=== PATIENT | female | born 1970 | race Hispanic/Latino ===

== ENCOUNTER 2025-01-12 12:54 | Emergency (ER) | payer SELFPAY ==
--- OUTSIDE RECORDS SUMMARY | 2025-01-12 12:57 | XMS REPORT | Clinical Summary ---
Author Name Unknown Organization [facility] Address [address] [place] [address] Care Team Providers Care Circulation Analyst Name Role Phone Shae Simmons MD Unavailable [phone] Suzanne Wheat MD Primary Care Provider [phone] Allergies No known active allergies Medications * This document contains information received from the source organization and may not represent a complete record from that organization. blood-glucose meter kitIndications:T ype 2 diabetes mellitus with hyperglycemia Test 4 times daily Dx code E11.65, Z79.4. Dispense brand preferred by insurance 1 each 04/16/20 22 Active lancets miscIndications: Type 2 diabetes mellitus with hyperglycemia Check blood sugar 4 times daily. Dx code E11.65, Z79.4. Dispense brand preferred by insurance that matches lancing device 400 each 3 04/16/20 22 Active insulin lispro (HumaLOG KwikPen Insulin) 100 unit/mL insulin penIndications:T ype 2 diabetes mellitus with hyperglycemia Inject 5 Units under the skin 3 (three) times a day before meals. 15 mL 5 04/17/20 22 Active Additional Information Patient taking differently: 8.5 Unitssubcutaneous 3 times daily before meals, Reason: Other, Reported on 08/17/2022 metFORMIN (GLUCOPHAGE) 500 mg tabletIndication s:Type 2 diabetes mellitus with hyperglycemia Take 2 tablets (1,000 mg) by mouth 2 (two) times a day with meals. 360 tablet 3 04/17/20 22 Active flash glucose sensor (FreeStyle Joe 2 Sensor) kitIndications:T ype 2 diabetes mellitus with hyperglycemia 1 Units by miscellaneous route every 14 (fourteen) days. 1 kit 6 05/13/19 Active tirzepatide (Mounjaro) 2.5 mg/0.5 mL pnijIndications: Type 2 diabetes mellitus with hyperglycemia Inject 2.5 mg under the skin every 7 days. 2 mL 3 08/18/19 23 Active insulin syringe-needle U-100 (BD Insulin Syringe) 0.5 mL 29 gauge x 1/2" syrgIndications: Type 2 diabetes mellitus with hyperglycemia Use with each insulin administration 200 each 3 08/18/19 Active atorvastatin (Lipitor) 40 mg tabletIndication s:Type 2 diabetes mellitus with hyperglycemia Take 1 tablet (40 mg) by mouth at bedtime. 90 tablet 3 08/18/19 Active insulin glargine-yfgn (Semglee,insulin glargine-yfgn,) 100 unit/mL solnIndications: Type 2 diabetes mellitus with hyperglycemia Inject 10 Units under the skin twice daily. 10 mL 1 10/22/19 Active blood sugar diagnostic (FreeStyle Lite Strips) strpIndications: Type 2 diabetes mellitus with hyperglycemia TEST 4 TIMES DAILY/ DX CODE E11.65, Z79.4. 400 strip 02/02/20 Active Active Problems Problem Noted Date Diagnosed Date Pleuritic pain 05/19/2022 Diverticulitis 04/15/2022 Type 2 diabetes mellitus 04/15/2022 Overview (04/15/2022): A1C 11%; 1000 mg daily metformin; A1C 9% last check Morbid (severe) obesity due to excess calories 1 06/16/2021 Mass of colon 04/09/2022 Hypothyroidism 04/19/2011 Overview (04/15/2022): on no replacement; on blood test Immunizations Immunization Administration Dates Next Due Influenza, injectable, quadrivalent, preservativ e free 01/17/2021 Surgical History Surgery Date Site/Laterality Comments SECTION, CLASSIC 01/17/2006 - 02/16/2006 GALLBLADDER SURGERY 03/20/2022 COLONOSCOPY 05/19/2022 CO COLONOSCOPY FLX DX W/COLLJ SPEC WHEN PFRMD 05/19/2022 N/A Procedure: DIAGNOSTIC FLEXIBLE COLONOSCOPY PROXIMAL TO SPLENIC FLEXURE; Surgeon: Curtis Salamanca MD; Location: MAIN ENDOSCOPY; Service: GASTROENTEROLOGY Medical History Medical History Date Comments Functional visual loss 0, uses glasses. Tooth disorder 04/19/2019 wisdom teeth Diverticulitis 10/29/2013 Gallstone cholecystectomy 03/20/2022 Type 2 diabetes mellitus 10/28/2021 A1C 11% ; 1000 mg daily metformin; A1C 9% last check Abnormal electrocardiogram (ECG) (EKG) Hypothyroidism 2011 on no replacemen t; on blood test Urinary tract infection 04/01/2022 treated and no symptoms Social History Tobacco Use Types Packs/Day Years Used Date Smoking Tobacco: Never Smokeless Tobacco: Never Tobacco Cessation:Counseling Given: Not Answered Alcohol Use Standard Drinks/Week Comments Not Currently 3 (1 standard drink = 0.6 oz pur e alcohol) on special occasions Comments No Sex and Gender Information Value Date Recorded Sex Assigned at Not on file Legal Sex Female 1:06 PM [employer] Gender Identity Not on file Sexual Orientation Not on file Obstetrics History Plan of Treatment Health Maintenance Due Date Last Done Comments Pneumococcal Vaccine: 50+ Ye ars (1 of 2 - PCV) 1989 COVID-19 Vaccine (3 - season) 2024, 06/14/2020 Influenza Vaccine (#1) 2024 01/17/2021 Insurance [employer] [place] [id number] [employer] [place] [place] [id number] Advance Directives * Full Code (Latest Code Status on File) Date Activated Date Inactivated Comments 05/19/2022 11:57 PM 05/20/2022 3:33 PM Care Teams Circulation Analyst Relationship Specialty Start Date End Date Shae Simmons MD [address] [place] [address] PCP - External Primary Care Provider Family Practice 04/03/22 Suzanne Wheat MD [facility] [place] [address] [email or web address] PCP - General Internal Medicine 04/08/22
--- NOTE | 2025-01-12 13:41 | RAD REPORT ---
Exam:Wrist Left 3 View HISTORY: Left wrist pain FINDINGS: Mildly displaced distal radial fracture appears to extend intra-articularly. No dislocation
--- NOTE | 2025-01-12 14:05 | EDPHYS ---
Physician Documentation [facility] Name: Bee Oliver Age: 54 yrs Sex: Female : 1970 Arrival Date: 01/12/2025 Time: 12:54 Bed 24 Private MD: JULES Physician Jay Elias HPI: 01/12 15:59 This 54 yrs old Female presents to ER via Ambulatory with complaints of Wrist sb4 Injury. 15:59 Patient states that she was moving some empty water jugs when she tripped over a shoe sb4 and fell forward, bracing herself with her left arm. States that she heard a crack and immediately had pain in her wrist that radiates up to her hand since. Is able to move her fingers but cannot move her wrist. No prior injuries, no major medical history. Historical: - Allergies: 13:06 No Known Allergies; db - PMHx: 13:06 None; db - PSHx: 13:06 Cholecystectomy; section; db - Immunization history:: Adult Immunizations unknown. - Infectious Disease History:: Denies. - Social history:: Smoking status: Patient denies any tobacco usage or history of. ROS: 15:59 Constitutional: Negative for fever, chills, and weight loss, sb4 15:59 MS/extremity: Positive for injury or acute deformity, decreased range of motion, pain, swelling, tenderness, of the left wrist, 15:59 All other systems are negative, Exam: 15:59 Hand exam: Circulation is intact in all extremities. Pulses: are normal with no sb4 appreciated deficits, sensation intact. Joints: the left wrist displays limited range of motion, pain at rest, painful range of motion, swelling, tenderness, 15:59 Constitutional: This is a well developed, well nourished patient who is awake, alert, and in no acute distress. Head/Face: Normocephalic, atraumatic. Eyes: Extra-ocular motions intact. Periorbital areas with no swelling, redness, or edema. ENT: Mucous membranes moist. Respiratory: No increased work of breathing, no retractions or nasal flaring. Skin: Warm, dry with normal turgor. Normal color with no rashes, no lesions, and no evidence of cellulitis. Vital Signs: 13:05 BP 131 / 72; Pulse 64; Resp 16; Temp 98; Pulse Ox 96% ; Weight 74.84 kg; Height 5 ft. 1 db in. ; 13:05 Body Mass Index 31.18 (74.84 kg, 154.94 cm) db MDM: 13:05 Medical Screening Exam initiated sb4 15:31 External Records Reviewed: [facility] aware checked, last scheduled prescription was for sb4 phentermine filled in March 2024. 15:46 Independent interpretation of the following test(s) in the Emergency Department X-Ray: sb4 My interpretation is Left wrist images -acute nondisplaced distal radius fracture. 16:00 Differential diagnosis: dislocation, closed fracture, contusion, abrasion, tendonitis. sb4 Data reviewed: vital signs, nurses notes, radiologic studies, plain films, and as a result, I will discharge patient. Counseling: I had a detailed discussion with the patient and/or guardian regarding the historical points, exam findings, and any diagnostic results supporting the discharge/admit diagnosis, radiology results, the need for outpatient follow up, for definitive care, to return to the emergency department if symptoms worsen or persist or if there are any questions or concerns that arise at home. Counseling: I had a detailed discussion with the patient and/or guardian regarding the need for outpatient follow up, a orthopedic surgeon. 01/12 13:08 Order name: Wrist Left (3 View) XRAY; Complete Time: 13:44 sb4 01/12 14:00 Order name: Sugar Tong Forearm Splint; Complete Time: 14:27 sb4 Administered Medications: 14:30 Drug: HYDROcodone-acetaminophen PO 5 mg-325 mg 2 tabs PO once Route: PO; iw 14:30 Drug: Ondansetron PO 4 mg PO once Route: PO; iw Disposition Summary: 01/12/25 14:05 Discharge Ordered Notes: Location: Home sb4 Problem: new sb4 Symptoms: have improved sb4 Condition: Stable sb4 Diagnosis - Acute distal radius fracture, left wrist sb4 Followup: sb4 - With: Israel Herrera MD - When: 1 week - Reason: Recheck today's complaints, Re-evaluation by your physician Followup: sb4 - With: Amor Orta MD - When: 1 week - Reason: Recheck today's complaints, Re-evaluation by your physician Followup: sb4 - With: Burt Paul MD - When: 1 week - Reason: Recheck today's complaints, Re-evaluation by your physician Discharge Instructions: - Discharge Summary Sheet sb4 - Wrist Fracture Treated With Immobilization, [id number] sb4 Forms: - Prescription Opioid Use sb4 - Patient Portal Instructions sb4 - Leadership Thank You Letter sb4 Prescriptions: - Ibuprofen 800 mg Oral Tablet - take 1 tablet ORAL route every 8 hours As needed take with food; 30 tablet; sb4 Refills: 0, Product Selection Permitted - Cyclobenzaprine 10 mg Oral Tablet - take 1 tablet ORAL route every 8 hours As needed; 30 tablet; Refills: 0, sb4 Product Selection Permitted - Tylenol-Codeine #3 300mg-30mg Oral tablet - take 1 tablet ORAL route every 4 hours As needed; 16 tablet; Refills: 0, sb4 Product Selection Permitted Signatures: Dispatcher [employer] Katherine Bridges, RN Marisela Yuan RN RN db Brown, Sophia, PAULO BATES sb4
--- NOTE | 2025-01-12 14:05 | ER ---
Nurse's Notes [facility] Name: Bee Oliver Age: 54 yrs Sex: Female : 1970 Arrival Date: 01/12/2025 Time: 12:54 Bed 24 Private MD: Diagnosis: Acute distal radius fracture, left wrist Presentation: 01/12 13:05 Chief complaint: Patient states: LEFT WRIST PAIN AFTER FALLING AND INJURING LEFT WRIST. db NEURO INTACT. STATES FEELS LIKE FINGERS ARE "NUMB". FELL THIS AM. Coronavirus screen: Client denies travel out of the [place] in the last 14 days. At this time, the client does not indicate any symptoms associated with coronavirus-19. Ebola Screen: Patient negative for fever greater than or equal to 101.5 degrees Fahrenheit, and additional compatible Ebola Virus Disease symptoms Patient denies exposure to infectious person. Patient denies travel to an Ebola-affected area in the 21 days before illness onset. No symptoms or risks identified at this time. Initial Sepsis Screen: Does the patient meet any 2 criteria? No. Patient's initial sepsis screen is negative. Does the patient have a suspected source of infection? No. Patient's initial sepsis screen is negative. Risk Assessment: Do you want to hurt yourself or someone else? Patient reports no desire to harm self or others. Onset of symptoms was January 12, 2025. 13:05 Method Of Arrival: Ambulatory db 13:05 Acuity: IJEOMA 4 db Triage Assessment: 13:05 General: Appears in no apparent distress. comfortable, Behavior is calm, cooperative. db Pain: Complains of pain in left wrist. Neuro: Level of Consciousness is awake, alert, obeys commands, Oriented to person, place, time, situation. Respiratory: Airway is patent Respiratory effort is even, unlabored, Respiratory pattern is regular, symmetrical. Musculoskeletal: Circulation, motion, and sensation intact. Capillary refill < 3 seconds, Range of motion: limited in left wrist. Injury Description: Bruise. Historical: - Allergies: 13:06 No Known Allergies; db - PMHx: 13: None; db - PSHx: 13:06 Cholecystectomy; section; db - Immunization history:: Adult Immunizations unknown. - Infectious Disease History:: Denies. - Social history:: Smoking status: Patient denies any tobacco usage or history of. Vital Signs: 13:05 BP 131 / 72; Pulse 64; Resp 16; Temp 98; Pulse Ox 96% ; Weight 74.84 kg; Height 5 ft. 1 db in. ; 13:05 Body Mass Index 31.18 (74.84 kg, 154.94 cm) db ED Course: 12:57 Patient arrived in ED. mr 12:59 Mary Smith PA-C [facility] sb4 12:59 Jay Elias MD is Attending Physician. sb4 13:05 Arm band placed on right wrist. db 13:06 Triage completed. db 13:21 Wrist Left (3 View) XRAY In Process Unspecified. EDMS 14:04 Israel Herrera MD is Referral Physician. sb4 14:04 Amor Orta MD is Referral Physician. sb4 14:05 Burt Paul MD is Referral Physician. sb4 14:09 Katherine Scott, RN is Primary Nurse. iw 14:27 Orthoglass splint: Sugar tong splint applied on left arm. Sling applied to left arm. em1 Administered Medications: 14:30 Drug: HYDROcodone-acetaminophen PO 5 mg-325 mg 2 tabs PO once Route: PO; iw 14:30 Drug: Ondansetron PO 4 mg PO once Route: PO; iw Outcome: 14:05 Discharge ordered by . sb4 14:51 Patient left the ED. iw Signatures: Dispatcher [employer] EDTX Bridgette Mott, Reg Reg mr Katherine Scott, RN ALVIN iw Wero Sparks em1 Marisela Gramajo RN RN db Mary Smith PA-C PA-C sb4 Corrections: (The following items were deleted from the chart) 13:07 13:05 BP 131 / 72; Pulse 64bpm; Resp 16bpm; Pulse Ox 96%; Temp 98F; db db
[2025-01-12] MEDS ORDERED: ONDANSETRON 4 MG (ODT) TAB ONE (14:14)
[2025-01-12] MEDS ORDERED: HYDROCODONE/APAP 5/325 MG TAB ONE (14:14)
[2025-01-12 14:59] VITALS: BP 131/72; TEMP 98; O2SAT 96
== END 2025-01-12 14:51 | disposition home or self-care (01) ==
LOC: ER 12:54
PROC: 2W3DX1Z Immobilization of Left Lower Arm using Splint (ICD-10-PCS; principal; 2025-01-12)
DX: S52.502A Unspecified fracture of the lower end of left radius, initial encounter for closed fracture (principal); W01.0XXA Fall on same level from slipping, tripping and stumbling without subsequent striking against object, initial encounter
CPT/HCPCS: 99283; Q0162